=== PATIENT | female | born 1990 | race Caucasian/White ===

== ENCOUNTER 2022-01-22 15:29 | Observation (INO) | payer SELFPAY ==
[2022-01-22] MEDS ORDERED: PNV1TABL76 MT (17:02)
== END 2022-01-22 17:20 | disposition home or self-care (01) ==
LOC: 8 EST A/PP 15:29
PROVIDERS: ADMIT Specialist; ATTEND Specialist
DX: O26.893 Other specified pregnancy related conditions, third trimester (principal); R10.2 Pelvic and perineal pain; Z3A.36 36 weeks gestation of pregnancy
CPT/HCPCS: 59025; G0378; 99281